=== PATIENT | male | born 1990 | race Caucasian/White ===

== ENCOUNTER 2019-06-22 16:54 | Inpatient (IN) | payer OTHER ==
[~2019-06-22] VITALS: Ht 175.3 cm; Wt 88.5 kg
--- NOTE | 2019-06-22 17:48 | NUR ---
RECEIVED PT TO ROOM 2137 VIA WHEELCHAIR, PT A/O X4, RESP EVEN AND NONLABABORED ON RA. ORIENTED PT TO ROOM AND CALL LIGHT, WILL ASSESS PT AND START PLAN OF CARE.
[2019-06-22] MEDS ORDERED: ADVIL200 MG PO (17:49)
[2019-06-22 18:09] VITALS: BP 116/57
[2019-06-22 18:43] VITALS: BMI 24.3
[2019-06-22 19:47] VITALS: BP 120/62
[2019-06-22 19:52] LABS: BASOPHILS 0.3 % (0-2); EOSINOPHILS 0 % (0-7); HEMATOCRIT 39.5 % (42.0-54.0); HEMOGLOBIN 13.4 g/dL (13.5-17.5); IMMATURE GRANULOCYTES 0.6 % (0-5); LYMPHOCYTES 19.4 % (15-50); MCH 32.1 pg (26.0-34.0); MCHC 33.9 g/dL (31.0-37.0); MCV 94.5 fL (80.0-100.0); MEAN PLATELET VOLUME 9.5 fL (7.4-10.4); MONOCYTES 12.2 % (2-11); NEUTROPHILS 67.5 % (40-80); PLATELET COUNT 151 10x3/uL (130-400); RBC 4.18 10x6/uL (4.20-6.10); RDW 11.9 % (11.5-14.5); WBC 3.6 10x3/uL (4.8-10.8)
[2019-06-22 20:21] LABS: ALBUMIN 3.3 g/dL (3.4-5.0); ALKALINE PHOSPHATASE 74 U/L (30-120); ALT (SGPT) 32 U/L (10-68); BILIRUBIN - TOTAL 0.41 mg/dL (0.2-1.3); C-REACTIVE PROTEIN 17.1 mg/dL (0.0-0.9); CALC OSMOLALITY 268 mosm/kg (275-300); CALCIUM 7.8 mg/dL (8.5-10.1); CARBON DIOXIDE 25.5 mmol/L (21.0-32.0); CHLORIDE - SERUM 100 mmol/L (98-107); FERRITIN 999 ng/mL (3-244); GLUCOSE 107 mg/dL (74-106); LDH 541 U/L (85-227); POTASSIUM - SERUM 3.5 mmol/L (3.5-5.1); SODIUM 134 mmol/L (136-145); UREA NITROGEN 14 mg/dL (7-18); eGFR NON AFRICAN AMERICAN > 90 mL/min (90-120)
[2019-06-22 20:53] LABS: ERYTHROCYTE SEDIMENTATION RATE 38 mm/hr (0-15)
--- NOTE | 2019-06-22 21:13 | NUR ---
PT IN BED, AAO X 3, RESP EVEN AND UNLABORED. NO DISTRESS NOTED. CL IN REACH, SR UP X 2.
[2019-06-22 23:00] VITALS: BP 106/56
--- NOTE | 2019-06-23 01:31 | NUR ---
PT TEMP AT 98.4 PER ORALTHEMOMETER
[2019-06-23 03:15] VITALS: BP 107/67
--- NOTE | 2019-06-23 03:35 | NUR ---
I have reviewed this patient and I concur with the Shift Assessment completed by the Licensed Practical Nurse today this shift.
[2019-06-23 05:29] LABS: BASOPHILS 0.3 % (0-2); EOSINOPHILS 0 % (0-7); HEMATOCRIT 37.2 % (42.0-54.0); HEMOGLOBIN 12.4 g/dL (13.5-17.5); IMMATURE GRANULOCYTES 0.5 % (0-5); LYMPHOCYTES 28.8 % (15-50); MCH 31.1 pg (26.0-34.0); MCHC 33.3 g/dL (31.0-37.0); MCV 93.2 fL (80.0-100.0); MEAN PLATELET VOLUME 9.1 fL (7.4-10.4); MONOCYTES 13.5 % (2-11); NEUTROPHILS 56.9 % (40-80); PLATELET COUNT 177 10x3/uL (130-400); RBC 3.99 10x6/uL (4.20-6.10); RDW 11.9 % (11.5-14.5); WBC 3.8 10x3/uL (4.8-10.8)
[2019-06-23 05:40] LABS: CALC OSMOLALITY 271 mosm/kg (275-300); CALCIUM 7.7 mg/dL (8.5-10.1); CARBON DIOXIDE 24.5 mmol/L (21.0-32.0); CHLORIDE - SERUM 103 mmol/L (98-107); CREATININE - SERUM 0.8 mg/dL (0.6-1.3); GLUCOSE 98 mg/dL (74-106); PHOSPHOROUS 3.1 mg/dL (2.5-4.9); POTASSIUM - SERUM 3.6 mmol/L (3.5-5.1); SODIUM 136 mmol/L (136-145); UREA NITROGEN 13 mg/dL (7-18); eGFR NON AFRICAN AMERICAN > 90 mL/min (90-120)
[2019-06-23 08:31] VITALS: BP 93/54
--- NOTE | 2019-06-23 09:35 | NUR ---
[facility]ED [facility] AND SPOKE WITH JENN, ASKED HER IF SHE COULD FAX PAPER STATING PT WAS TESTED FOR COVID 19.
[2019-06-23 09:39] LABS: BACTERIA FEW /hpf (NEGATIVE); BILIRUBIN NEGATIVE (NEGATIVE); EPITHELIAL CELLS OCC /hpf (0-5); GLUCOSE NEGATIVE (NEGATIVE); KETONE MODERATE mg/dL (NEGATIVE); NITRITE NEGATIVE (NEGATIVE); RED CELLS - URINE RARE /hpf (0-5); SPECIFIC GRAVITY 1.015 (1.005-1.020); WHITE CELLS - URINE 0-5 /hpf (NEGATIVE)
[2019-06-23 10:59] VITALS: BP 105/68
--- NOTE | 2019-06-23 12:50 | MORECARE ---
CASE MANAGEMENT DISCHARGE SUMMARY PATIENT: NORM SHORT UNIT: [id number] ADM DATE: 06/22/19 AGE: 28 : 90 SEX: M ROOM/BED: D.2137 AUTHOR: JEWEL MOSS PHYSICIAN: REFERRING PHYSICIAN: FELICITAS HANCOCK DO DATE OF SERVICE: 06/23/19 Discharge Plan Patient Name: NORM SHORT Facility: [facility]:[place] : 1990 Planned Disposition: Home Anticipated Discharge Date: 06/23/19 Discharge Date: Expected LOS: 1 Initial Reviewer: [email or web address] Initial Review Date: 06/22/2019 Generated: 06/23/19 1:49 pm DCPIA - Discharge Planning Initial Assessment Updated by [email or web address]: Blaed Pan on 06/23/19 12:46 pm * Is the patient Alert and Oriented? Yes * How many steps to enter\exit or inside your home? NONE * PCP DR. HANCOCK * Pharmacy [facility] IN [place] * Preadmission Environment Home with Family * ADLs Independent * Equipment None * Other Equipment NO MEDICAL EQUIPMENT PROVIDER PREFERENCE * List name and contact numbers for known caregivers / representatives who currently or will assist patient after discharge: JUHI SHORT, SPOUSE, * Verbal permission to speak to the caregivers and representatives has been obtained from the patient. N/A * Community resources currently utilized None * Please name any agencies selected above. NONE * Additional services required to return to the preadmission environment? No * Can the patient safely return to the preadmission environment? Yes * Has this patient been hospitalized within the prior 30 days at any hospital? No Patient Name: NORM SHORT Page 22384 at 1250 All edits/amendments must be made on the electronic document DICTATION DATE: 06/23/19 1249 SENIOR DATABASE PROGRAMMER: JESUS 06/23/19 1249 RPT#: [id number] DC DATE: STATUS: ADM IN [facility] [address] [place] [address] END OF REPORT
--- NOTE | 2019-06-23 12:57 | MORECARE ---
CASE MANAGEMENT DISCHARGE SUMMARY PATIENT: NORM SHORT UNIT: [id number] ADM DATE: 06/22/19 AGE: 28 : 90 SEX: M ROOM/BED: D.6411 AUTHOR: AJAY,DOC PHYSICIAN: REFERRING PHYSICIAN: FELICITAS HANCOCK DO DATE OF SERVICE: 06/23/19 Discharge Plan Patient Name: NORM SHORT Facility: [facility]:[place] : 1990 Planned Disposition: Home Anticipated Discharge Date: 06/23/19 Discharge Date: Expected LOS: 1 Initial Reviewer: [email or web address] Initial Review Date: 06/22/2019 Generated: 06/23/19 1:56 pm Comments DCP- Discharge Planning Updated by [email or web address]: Blade Pan on 06/23/19 11:[address] Patient Name: NORM SHORT Admission Status: Elective Accout number: [id number] Admission Date: 06-22-2019 : 1990 Admission Diagnosis: Attending: FELICITAS HANCOCK Current LOS: 1 Anticipated DC Date: 06-23-2019 Planned Disposition: Home Primary Insurance: [facility] Discharge Planning Comments: CM CALLED AND SPOKE TO PT VIA ROOM PHONE DUE TO INFECTION CONTROL PROTOCOL, TO DISCUSS DISCHARGE PLANNING AND NEEDS. PT REPORTS LIVING AT HOME INDEPENDENTLY WITH HIS SPOUSE. PT HAS NO MEDICAL EQUIPMENT AND NO OUTSIDE SERVICES ASSISTING IN THE HOME. CM DISCUSSED AVAILABILITY OF HOME HEALTH, REHAB SERVICES AND MEDICAL EQUIPMENT. PT DENIES DISCHARGE NEEDS, REPORTS HIS FAMILY WILL PICK HIM UP FOR DISCHARGE HOME. PT PLANS TO DISCHARGE HOME WITH FAMILY, PT HAS NO ANTICIPATED DISCHARGE NEEDS AT THIS TIME. FAMILY TO TRANSPORT PT HOME AT DISCHARGE. CM TO FOLLOW AND ASSIST IF NEEDED. Smash Fixer: Blade Pan DCPIA - Discharge Planning Initial Assessment Updated by [id number]: Blade Pan on 06/23/19 12:46 pm * Is the patient Alert and Oriented? Yes * How many steps to enter\exit or inside your home? NONE * PCP DR. HANCOCK * Pharmacy [facility] IN [place] * Preadmission Environment Home with Family * ADLs Independent * Equipment None * Other Equipment NO MEDICAL EQUIPMENT PROVIDER PREFERENCE * List name and contact numbers for known caregivers / representatives who currently or will assist patient after discharge: JUHI SHORT SPOUSE, * Verbal permission to speak to the caregivers and representatives has been obtained from the patient. N/A * Community resources currently utilized None * Please name any agencies selected above. NONE * Additional services required to return to the preadmission environment? No * Can the patient safely return to the preadmission environment? Yes * Has this patient been hospitalized within the prior 30 days at any hospital? No Last DP export: 06/23/19 11:50 a Patient Name: NORM SHORT Page 66654 at 1257 All edits/amendments must be made on the electronic document DICTATION DATE: 06/23/191255 NEWSPAPER STUFFER: JESUS 06/23/191255 RPT#: [id number] DC DATE: STATUS: ADM IN [facility] [address] [place] [address] END OF REPORT
[2019-06-23 13:06] VITALS: Ht 175.3 cm; Wt 88.5 kg
--- NOTE | 2019-06-23 13:10 | NUR ---
650MG OF TYLENOL GIVEN FOR FEVER ALSO GAVE 4MG OF ZOFRAN FOR NAUSEA. PT DENIES ANY OTHER NEEDS AT THIS TIME. CALL LIGHT IN REACH, NAD NOTED, WILL CONTINUE TO MONITOR.
[2019-06-23 17:22] VITALS: BP 106/62
--- NOTE | 2019-06-23 19:00 | NUR ---
REPORT RECEIVED, WILL CONTINUE POC. PATIENT IS AAOX4, LYING IN SEMI-FOWLERS POSITION. NO S/S OF DISTRESS OBSERVED, RR EVEN AND UNLABORED ON 2L O2 VIA NC. PIV TO RT FA INFUSING NS @ 30ML/HR. PATIENT DENIES NEEDS AT THIS TIME. CL IN REACH, BED LOCKED AND LOWERED. WILL CTM.
--- NOTE | 2019-06-23 20:20 | NUR ---
ADMINISTERED HS MEDS AND GAVE ICE WATER, JELLO AND APPLESAUCE. PATIENT AT 0% OF DINNER. APPLIED TELEMETRY. VSS. PATIENT DENIES FURTHER NEEDS AT THIS TIME.
[2019-06-23 20:38] VITALS: BP 112/67
[2019-06-24 05:12] VITALS: BP 102/53
--- NOTE | 2019-06-24 05:28 | NUR ---
I have reviewed this patient and I concur with the Shift Assessment completed by the Licensed Practical Nurse today this shift.
--- NOTE | 2019-06-24 05:41 | NUR ---
PATIENT IV INFILTRATED. IV REMOVED WITH CATH TIP INTACT, GAUZE AND TAPE APPLIED. ICE WATER GIVEN. PATIENT DENIES FURTHER NEEDS AT THIS TIME. DROPLET PRECAUTIONS MAINTAINED.
[2019-06-24 07:08] LABS: BASOPHILS 0.2 % (0-2); EOSINOPHILS 0.4 % (0-7); HEMATOCRIT 38.5 % (42.0-54.0); IMMATURE GRANULOCYTES 0.4 % (0-5); LYMPHOCYTES 20.8 % (15-50); MCH 31.7 pg (26.0-34.0); MCHC 33.8 g/dL (31.0-37.0); MCV 93.9 fL (80.0-100.0); MEAN PLATELET VOLUME 9.1 fL (7.4-10.4); MONOCYTES 11.5 % (2-11); NEUTROPHILS 66.7 % (40-80); RDW 11.8 % (11.5-14.5)
[2019-06-24 07:11] LABS: PLATELET COUNT 220 10x3/uL (130-400)
[2019-06-24 07:41] LABS: CALC OSMOLALITY 272 mosm/kg (275-300); CALCIUM 8.1 mg/dL (8.5-10.1); CARBON DIOXIDE 24.5 mmol/L (21.0-32.0); CHLORIDE - SERUM 102 mmol/L (98-107); CREATININE - SERUM 0.8 mg/dL (0.6-1.3); GLUCOSE 97 mg/dL (74-106); MAGNESIUM - SERUM 2.2 mg/dL (1.8-2.4); POTASSIUM - SERUM 3.8 mmol/L (3.5-5.1); SODIUM 137 mmol/L (136-145); UREA NITROGEN 10 mg/dL (7-18); eGFR NON AFRICAN AMERICAN > 90 mL/min (90-120)
[2019-06-24 08:44] VITALS: BP 103/59
--- NOTE | 2019-06-24 09:06 | NUR ---
LEFT FA 20G IV INSERTED ON FIRST ATTEMPT.
--- NOTE | 2019-06-24 10:21 | NUR ---
PATIENTS MOTHER TIFFANIE WANTING UPDAT. THIS NURSE WAS IN ROOM SHE LEFT HER NUMBER WITH SPINNING LATHE OPERATOR HYDRAULIC. THIS NURSE CALLED THAT NUMBER TWICE AND RECEIVED NO ANSWER.
--- NOTE | 2019-06-24 10:42 | NUR ---
I have reviewed this patient and I concur with the Shift Assessment completed by the Licensed Practical Nurse today this shift.
--- NOTE | 2019-06-24 20:00 | NUR ---
PT SITTING UP IN BED. NO SIGNS OF DISTRESS. PT DENIES ANY PAIN OR NEEDS AT THIS TIME. CL IN REACH, BED IN LOWEST POSITION. O2 VIA NC AT 3L. RIGHT FOREARM IV INFUSING AT 30ML/HR.
[2019-06-24 21:00] VITALS: BP 110/62
[2019-06-25 05:23] VITALS: BP 103/58
[2019-06-25 06:22] LABS: BASOPHILS 0.5 % (0-2); EOSINOPHILS 0.7 % (0-7); HEMATOCRIT 39.2 % (42.0-54.0); IMMATURE GRANULOCYTES 0.5 % (0-5); LYMPHOCYTES 27.5 % (15-50); MCH 31.3 pg (26.0-34.0); MCHC 33.2 g/dL (31.0-37.0); MCV 94.2 fL (80.0-100.0); MEAN PLATELET VOLUME 9.3 fL (7.4-10.4); MONOCYTES 13.3 % (2-11); NEUTROPHILS 57.5 % (40-80); PLATELET COUNT 256 10x3/uL (130-400); RBC 4.16 10x6/uL (4.20-6.10); RDW 11.9 % (11.5-14.5); WBC 4.4 10x3/uL (4.8-10.8)
[2019-06-25 06:45] LABS: CALC OSMOLALITY 278 mosm/kg (275-300); CALCIUM 8.3 mg/dL (8.5-10.1); CARBON DIOXIDE 25.1 mmol/L (21.0-32.0); CHLORIDE - SERUM 104 mmol/L (98-107); CREATININE - SERUM 0.8 mg/dL (0.6-1.3); GLUCOSE 91 mg/dL (74-106); MAGNESIUM - SERUM 2.3 mg/dL (1.8-2.4); PHOSPHOROUS 4.2 mg/dL (2.5-4.9); POTASSIUM - SERUM 3.9 mmol/L (3.5-5.1); SODIUM 140 mmol/L (136-145); UREA NITROGEN 12 mg/dL (7-18); eGFR NON AFRICAN AMERICAN > 90 mL/min (90-120)
--- NOTE | 2019-06-25 08:00 | NUR ---
PT RECEIVED AWAKE AND ALERT, LYING IN BED. STILL WITH DRY COUGH, NOT VERY PRODUCTIVE. PULSE OX 95% ON 3 LITERS.
[2019-06-25 08:03] VITALS: BP 107/57
--- NOTE | 2019-06-25 08:35 | MORECARE ---
CASE MANAGEMENT DISCHARGE SUMMARY PATIENT: NORM SHORT UNIT: [id number] ADM DATE: 06/22/19 AGE: 28 : 90 SEX: M ROOM/BED: D.2131 AUTHOR: AJAY,DOC PHYSICIAN: REFERRING PHYSICIAN: FELICITAS HANCOCK DO DATE OF SERVICE: 06/25/19 Discharge Plan Patient Name: NORM SHORT Facility: [facility]:[place] : 1990 Planned Disposition: Home Anticipated Discharge Date: 06/23/19 Discharge Date: Expected LOS: 1 Initial Reviewer: [email or web address] Initial Review Date: 06/22/2019 Generated: 06/25/19 9:35 am Comments DCP- Discharge Planning Updated by [email or web address]: Blade Pan on 06/23/19 11:[address] Patient Name: NORM SHORT Admission Status: Elective Accout number: [id number] Admission Date: 06-22-2019 : 1990 Admission Diagnosis: Attending: FELICITAS HANCOCK Current LOS: 1 Anticipated DC Date: 06-23-2019 Planned Disposition: Home Primary Insurance: [facility] Discharge Planning Comments: CM CALLED AND SPOKE TO PT VIA ROOM PHONE DUE TO INFECTION CONTROL PROTOCOL, TO DISCUSS DISCHARGE PLANNING AND NEEDS. PT REPORTS LIVING AT HOME INDEPENDENTLY WITH HIS SPOUSE. PT HAS NO MEDICAL EQUIPMENT AND NO OUTSIDE SERVICES ASSISTING IN THE HOME. CM DISCUSSED AVAILABILITY OF HOME HEALTH, REHAB SERVICES AND MEDICAL EQUIPMENT. PT DENIES DISCHARGE NEEDS, REPORTS HIS FAMILY WILL PICK HIM UP FOR DISCHARGE HOME. PT PLANS TO DISCHARGE HOME WITH FAMILY, PT HAS NO ANTICIPATED DISCHARGE NEEDS AT THIS TIME. FAMILY TO TRANSPORT PT HOME AT DISCHARGE. CM TO FOLLOW AND ASSIST IF NEEDED. Tour Agent: Blade Pan DCPIA - Discharge Planning Initial Assessment Updated by [email or web address]: Blade Pan on 06/23/19 12:46 pm * Is the patient Alert and Oriented? Yes * How many steps to enter\exit or inside your home? NONE * PCP DR. HANCOCK * Pharmacy [facility] IN [place] * Preadmission Environment Home with Family * ADLs Independent * Equipment None * Other Equipment NO MEDICAL EQUIPMENT PROVIDER PREFERENCE * List name and contact numbers for known caregivers / representatives who currently or will assist patient after discharge: JUHI SHORT SPOUSE, * Verbal permission to speak to the caregivers and representatives has been obtained from the patient. N/A * Community resources currently utilized None * Please name any agencies selected above. NONE * Additional services required to return to the preadmission environment? No * Can the patient safely return to the preadmission environment? Yes * Has this patient been hospitalized within the prior 30 days at any hospital? No Last DP export: 06/23/19 11:57 a Patient Name: NORM SHORT Page [id number] at 0835 All edits/amendments must be made on the electronic document DICTATION DATE: 06/25/19834 SILVER MINER BLASTING: JESUS 06/25/19834 RPT#: [id number] DC DATE: STATUS: ADM IN [facility] [address] [place] [address] END OF REPORT
[2019-06-25 14:07] VITALS: BP 98/54
[2019-06-25 17:46] VITALS: BP 99/62
--- NOTE | 2019-06-25 19:19 | NUR ---
MADE CONTACT BUY PHONE PT WAS ALERT AND OX4 AND DENIES NEEDS AT THIS TIME I WILL LIMIT ACCESS TO ROOM MUCH POSSIBLE AND WILL OBSERVE DROPLET ISOLATION
--- NOTE | 2019-06-25 21:12 | NUR ---
CONTACT WITH PT HAS BEEN MADE AND MEDS GIVEN BED LOW AND LOCKED VS AND NEEDS DONE
[2019-06-25 21:25] VITALS: BP 101/71
[2019-06-26 00:23] VITALS: BP 106/68
--- NOTE | 2019-06-26 04:01 | NUR ---
I have reviewed this patient and I concur with the Shift Assessment completed by the Licensed Practical Nurse today this shift.
[2019-06-26 05:29] LABS: BASOPHILS 0.2 % (0-2); EOSINOPHILS 1.5 % (0-7); HEMATOCRIT 38.4 % (42.0-54.0); HEMOGLOBIN 12.7 g/dL (13.5-17.5); IMMATURE GRANULOCYTES 0.7 % (0-5); LYMPHOCYTES 22.3 % (15-50); MCH 31.3 pg (26.0-34.0); MCHC 33.1 g/dL (31.0-37.0); MCV 94.6 fL (80.0-100.0); MEAN PLATELET VOLUME 9.3 fL (7.4-10.4); MONOCYTES 13.7 % (2-11); NEUTROPHILS 61.6 % (40-80); RBC 4.06 10x6/uL (4.20-6.10); RDW 11.8 % (11.5-14.5)
[2019-06-26 05:34] LABS: C-REACTIVE PROTEIN 6.8 mg/dL (0.0-0.9); CALC OSMOLALITY 271 mosm/kg (275-300); CALCIUM 8.4 mg/dL (8.5-10.1); CARBON DIOXIDE 26.1 mmol/L (21.0-32.0); CHLORIDE - SERUM 102 mmol/L (98-107); CREATININE - SERUM 0.9 mg/dL (0.6-1.3); GLUCOSE 90 mg/dL (74-106); MAGNESIUM - SERUM 2.2 mg/dL (1.8-2.4); PHOSPHOROUS 4.1 mg/dL (2.5-4.9); POTASSIUM - SERUM 3.9 mmol/L (3.5-5.1); SODIUM 136 mmol/L (136-145); UREA NITROGEN 12 mg/dL (7-18); eGFR NON AFRICAN AMERICAN > 90 mL/min (90-120)
[2019-06-26 05:39] LABS: PLATELET COUNT 330 10x3/uL (130-400); WBC 6.1 10x3/uL (4.8-10.8)
--- NOTE | 2019-06-26 07:20 | NUR ---
PT RECEIVED ASLEEP IN BED. NO APPARENT DISTRESS, RESTING QUIETLY.
[2019-06-26 08:08] VITALS: BP 108/62
--- NOTE | 2019-06-26 14:00 | NUR ---
Nutrition Follow-up: On droplet isolation; covid-19+. Nursing reports pt not eating well. Diarrhea improving. Denies N/V. Diet: Regular No new wt; last wt: 195# (06/22) Labs noted: Ca 8.4 Meds noted: Questran, Protonix -Encourage PO intake and honor food preferences. -Offer nutrition supplements. -RD following.
[2019-06-26 15:13] VITALS: BP 101/59
[2019-06-26 20:15] VITALS: BP 107/67
--- NOTE | 2019-06-26 21:24 | NUR ---
RECEIVED UP IN BED WITH EYES OPEN AND TV ON. ALERT AND ORIENTED X4. UP AD IVETTE. OFF GOING REPORTED PT REFUSED HIS LOVENOX EARLIER. EDUCATED HIM ON WHY HE WAS RECEIVING IT AND POSSIBLE EFFECTS OF NOT TAKING IT. PT AGREED TO TAKE IT. O2@ 3 LITERS PER NC. IV TO LT FA SL. TELEMETRY IN PLACE. DENIES ANY NEEDS.
[2019-06-27 03:58] VITALS: BP 112/68
[2019-06-27 04:58] LABS: BASOPHILS 0.3 % (0-2); EOSINOPHILS 1.7 % (0-7); HEMATOCRIT 39.7 % (42.0-54.0); HEMOGLOBIN 13.3 g/dL (13.5-17.5); IMMATURE GRANULOCYTES 0.7 % (0-5); LYMPHOCYTES 19.1 % (15-50); MCH 31.7 pg (26.0-34.0); MCHC 33.5 g/dL (31.0-37.0); MCV 94.5 fL (80.0-100.0); MONOCYTES 13.6 % (2-11); NEUTROPHILS 64.6 % (40-80); PLATELET COUNT 352 10x3/uL (130-400); RDW 11.7 % (11.5-14.5); WBC 5.8 10x3/uL (4.8-10.8)
[2019-06-27 05:11] LABS: CALC OSMOLALITY 240 mosm/kg (275-300); CALCIUM 8.4 mg/dL (8.5-10.1); CARBON DIOXIDE 29.3 mmol/L (21.0-32.0); CHLORIDE - SERUM 96 mmol/L (98-107); GLUCOSE 94 mg/dL (74-106); MAGNESIUM - SERUM 2.3 mg/dL (1.8-2.4); PHOSPHOROUS 4.4 mg/dL (2.5-4.9); POTASSIUM - SERUM 3.4 mmol/L (3.5-5.1); UREA NITROGEN 11 mg/dL (7-18); eGFR NON AFRICAN AMERICAN > 90 mL/min (90-120)
[2019-06-27 05:13] LABS: SODIUM 120 mmol/L (136-145)
[2019-06-27 05:48] VITALS: BP 101/60
--- NOTE | 2019-06-27 08:52 | NUR ---
PT LAYING SUPINE, DENIES NEEDS OR PAIN AT THIS TIME. CALL LIGHT WITHIN REACH. BED IN LOWEST POSITION. WILL CONTINUE TO MONITOR.
[2019-06-27 09:21] VITALS: BP 104/69
--- NOTE | 2019-06-27 12:15 | NUR ---
PATIENTS MOTHER CALLED AND REQUESTED CALL BACK. MOTHERS NUMBER IS [phone], DANETTE SHORT. NURSE TO RETURN CALL.
[2019-06-27 12:19] LABS: CALC OSMOLALITY 272 mosm/kg (275-300); CALCIUM 8.8 mg/dL (8.5-10.1); CARBON DIOXIDE 24.7 mmol/L (21.0-32.0); CHLORIDE - SERUM 101 mmol/L (98-107); CREATININE - SERUM 1.1 mg/dL (0.6-1.3); GLUCOSE 86 mg/dL (74-106); POTASSIUM - SERUM 4.4 mmol/L (3.5-5.1); SODIUM 137 mmol/L (136-145); UREA NITROGEN 13 mg/dL (7-18); eGFR NON AFRICAN AMERICAN 85 mL/min (90-120)
--- NOTE | 2019-06-27 12:42 | NUR ---
PT'S MOTHER CALLED. WAS NOT ABLE TO SPEAK WITH HER AT THE TIME DUE TO BEING IN ISOLATION ROOMS. STATED SHE WOULD CALL BACK AT A LATER TIME. PT DENIES NEEDS OR PAIN AT THIS TIME. LUNCH TRAY RECIEVED. WILL CONTINUE TO MONITOR.
[2019-06-27 18:31] VITALS: BP 111/57
[2019-06-27 20:17] VITALS: BP 99/59
--- NOTE | 2019-06-27 20:33 | NUR ---
RECEIVED UP IN BED WITH EYES OPEN AN DTV ON. ALERT AND ORIENTED X4. UP AD IVETTE. O2@ 1.5 LITERS PER N/C IN PLACE. IV TO LT FA SL. REQUESTING A SHOWER. WILL COLLECT SUPPLIES AND GIVE HIM A SHOWER. DENIES ANY OTHER NEEDS AT THIS TIME.
[2019-06-27 23:36] VITALS: BP 105/68
[2019-06-28 05:55] VITALS: BP 105/62
--- NOTE | 2019-06-28 07:00 | NUR ---
RECEIVED REPORT. ASSUMED CARE OF PATIENT. PATIENT REMAINS IN ISOLATION FOR COVID-19. PATIENT IS SR ON TELEMETRY WITH RATE OF 61. PER AM REPORT, PATIENT TO D/C TO HOME TODAY. NO D/C ORDERS AT THIS TIME.
[2019-06-28 08:26] VITALS: BP 111/67
--- NOTE | 2019-06-28 09:46 | NUR ---
O2 VIA NC AT 1L, SATURATION 97-99%. REMOVED OXYGEN FROM PATIENT FOR 5 MINUTES WHILE AT BEDSIDE. ROOM AIR SATURATION 98%
--- NOTE | 2019-06-28 11:04 | NUR ---
UPON REVIEWING PROGRESS NOTES, THIS DEICER REPAIRER ELECTRIC HAS NOT HAD A LENGTHY CONVERSATION REGARDING PATIENT.
--- NOTE | 2019-06-28 11:44 | MORECARE ---
CASE MANAGEMENT DISCHARGE SUMMARY PATIENT: NORM SHOTR UNIT: [id number] ADM DATE: 06/22/19 AGE: 28 : [birth year] SEX: M ROOM/BED: D.2131 AUTHOR: AJAY,DOC PHYSICIAN: REFERRING PHYSICIAN: FELICITAS HANCOCK DO DATE OF SERVICE: 06/28/19 Discharge Plan Patient Name: NORM SHORT Facility: [facility]:[place] : 1990 Planned Disposition: Home Anticipated Discharge Date: 06/23/19 Discharge Date: Expected LOS: 1 Initial Reviewer: [email or web address] Initial Review Date: 06/22/2019 Generated: 06/28/19 12:43 pm Comments DCP- Discharge Planning Updated by [email or web address]: Vira Davis on 06/28/19 10:[address] CM spoke with patient's nurse regarding walk test for potential home 02. Nursing is stating that he is currently on RA and at 95%. CM asked if the next time she is in room have him walk around in room and check 02 sat since patient is in isolation. Nursing agreed to try since he is in such close courters it will a little difficult. She states that the patient isn't complaining of feeling SOB anymore. CM will continue to follow and assist as needed with discharge planning / needs. DCP- Discharge Planning Updated by [email or web address]: Blade Pan on 06/23/19 11:[address] Patient Name: NORM SHORT Admission Status: Elective Accout number: [id number] Admission Date: 06-22-2019 : 1990 Admission Diagnosis: Attending: FELICITAS HANCOKC Current LOS: 1 Anticipated DC Date: 06-23-2019 Planned Disposition: Home Primary Insurance: [facility] Discharge Planning Comments: CM CALLED AND SPOKE TO PT VIA ROOM PHONE DUE TO INFECTION CONTROL PROTOCOL, TO DISCUSS DISCHARGE PLANNING AND NEEDS. PT REPORTS LIVING AT HOME INDEPENDENTLY WITH HIS SPOUSE. PT HAS NO MEDICAL EQUIPMENT AND NO OUTSIDE SERVICES ASSISTING IN THE HOME. CM DISCUSSED AVAILABILITY OF HOME HEALTH, REHAB SERVICES AND MEDICAL EQUIPMENT. PT DENIES DISCHARGE NEEDS, REPORTS HIS FAMILY WILL PICK HIM UP FOR DISCHARGE HOME. PT PLANS TO DISCHARGE HOME WITH FAMILY, PT HAS NO ANTICIPATED DISCHARGE NEEDS AT THIS TIME. FAMILY TO TRANSPORT PT HOME AT DISCHARGE. CM TO FOLLOW AND ASSIST IF NEEDED. Travel Coordinator: Blade Pan DCPIA - Discharge Planning Initial Assessment Updated by [email or web address]: Blade Pan on 06/23/19 12:46 pm * Is the patient Alert and Oriented? Yes * How many steps to enter\exit or inside your home? NONE * PCP DR. HANCOCK * Pharmacy [facility] IN [place] * Preadmission Environment Home with Family * ADLs Independent * Equipment None * Other Equipment NO MEDICAL EQUIPMENT PROVIDER PREFERENCE * List name and contact numbers for known caregivers / representatives who currently or will assist patient after discharge: JUHI SHORT, SPOUSE, * Verbal permission to speak to the caregivers and representatives has been obtained from the patient. N/A * Community resources currently utilized None * Please name any agencies selected above. NONE * Additional services required to return to the preadmission environment? No * Can the patient safely return to the preadmission environment? Yes * Has this patient been hospitalized within the prior 30 days at any hospital? No Last DP export: 06/25/19 7:35 am Patient Name: NORM SHORT Page 78777 at 1144 All edits/amendments must be made on the electronic document DICTATION DATE: 06/28/191142 INTERNATIONAL EDITORIAL PRODUCER: JESUS 06/28/191142 RPT#: [id number] DC DATE: STATUS: ADM IN [facility] [address] [place] [address] END OF REPORT
--- NOTE | 2019-06-28 12:13 | NUR ---
LABS COLLECTED AT THIS TIME.
--- NOTE | 2019-06-28 12:16 | NUR ---
PT AMBULATING IN ROOM ON ROOM AIR, OXYGEN SATURATION 98-99% PATIENT AMBULATED APPROXIMATELY 75-100 FT IN ROOM.
[2019-06-28 12:35] VITALS: BP 122/69
[2019-06-28 12:40] LABS: BASOPHILS 0.5 % (0-2); EOSINOPHILS 2.3 % (0-7); HEMATOCRIT 41.7 % (42.0-54.0); HEMOGLOBIN 14.2 g/dL (13.5-17.5); IMMATURE GRANULOCYTES 1.6 % (0-5); LYMPHOCYTES 20.7 % (15-50); MCH 31.8 pg (26.0-34.0); MCHC 34.1 g/dL (31.0-37.0); MCV 93.3 fL (80.0-100.0); MEAN PLATELET VOLUME 9.5 fL (7.4-10.4); MONOCYTES 13.9 % (2-11); PLATELET COUNT 391 10x3/uL (130-400); RBC 4.47 10x6/uL (4.20-6.10); RDW 11.6 % (11.5-14.5); WBC 4.4 10x3/uL (4.8-10.8)
[2019-06-28 12:52] LABS: CALC OSMOLALITY 271 mosm/kg (275-300); CALCIUM 8.6 mg/dL (8.5-10.1); CARBON DIOXIDE 23.6 mmol/L (21.0-32.0); CHLORIDE - SERUM 104 mmol/L (98-107); GLUCOSE 89 mg/dL (74-106); POTASSIUM - SERUM 4.6 mmol/L (3.5-5.1); SODIUM 137 mmol/L (136-145); UREA NITROGEN 11 mg/dL (7-18)
[2019-06-28 12:53] LABS: CREATININE - SERUM 0.7 mg/dL (0.6-1.3); eGFR NON AFRICAN AMERICAN > 90 mL/min (90-120)
[2019-06-28] MEDS ORDERED: ZITHROMAX250 MG PO (14:27)
--- NOTE | 2019-06-28 14:52 | NUR ---
PER NURSING MESSAGE, ROCEPHIN ADMINISTERED AT THIS TIME IN ORDER FOR PATIENT TO DISCHARGE TO HOME. NO DISTRESS.
--- NOTE | 2019-06-28 15:50 | NUR ---
TELEMETRY REMOVED AND RETURNED TO DRY CAN TENDER. 20 GAUGE IV REMOVED FROM LEFT WRIST. CATHETER TIP INTACT. NO BLEEDING FROM SITE. 2X2 GAUZE APPLIED AND SECURED WITH BANDAID. TOLERATED IV REMOVAL WELL PATIENT IS DISCHARGING TO HOME.
--- NOTE | 2019-06-28 16:00 | NUR ---
DISCHARGE INSTRUCTIONS PROVIDED TO PATIENT. PATIENT VERBALIZED UNDERSTANDING OF ALL INSTRUCTIONS PROVIDED.
--- NOTE | 2019-06-28 16:16 | NUR ---
PATIENT LEFT UNIT VIA WHEELCHAIR AT THIS TIME WITH ALL PERSONAL BELONGINGS. PATIENT DROVE SELF HOME. PATIENT LEFT UNIT IN STABLE CONDITION AND DISCHARGED TO HOME.
--- NOTE | 2019-06-29 08:48 | MORECARE ---
CASE MANAGEMENT DISCHARGE SUMMARY PATIENT: NORM SHORT UNIT: [id number] ADM DATE: 06/22/19 AGE: 28 : 90 SEX: M ROOM/BED: D.2131 AUTHOR: AJAY,DOC PHYSICIAN: REFERRING PHYSICIAN: FELICITAS HANCOCK DO DATE OF SERVICE: 06/29/19 Discharge Plan Patient Name: NORM SHORT Facility: [facility]:[place] : 1990 Planned Disposition: Home Anticipated Discharge Date: 06/28/19 Discharge Date: 06/28/2019 Expected LOS: 6 Initial Reviewer: [email or web address] Initial Review Date: 06/22/2019 Generated: 06/29/19 9:48 am Comments DCP- Discharge Planning Updated by [email or web address]: Vira Davis on 06/28/19 10:[address] CM spoke with patient's nurse regarding walk test for potential home 02. Nursing is stating that he is currently on RA and at 95%. CM asked if the next time she is in room have him walk around in room and check 02 sat since patient is in isolation. Nursing agreed to try since he is in such close courters it will a little difficult. She states that the patient isn't complaining of feeling SOB anymore. CM will continue to follow and assist as needed with discharge planning / needs. DCP- Discharge Planning Updated by [email or web address]: Blade Pan on 06/23/19 11:[address] Patient Name: NORM SHORT Admission Status: Elective Accout number: [id number] Admission Date: 06-22-2019 : 1990 Admission Diagnosis: Attending: FELICITAS HANCOCK Current LOS: 1 Anticipated DC Date: 06-23-2019 Planned Disposition: Home Primary Insurance: [facility] Discharge Planning Comments: CM CALLED AND SPOKE TO PT VIA ROOM PHONE DUE TO INFECTION CONTROL PROTOCOL, TO DISCUSS DISCHARGE PLANNING AND NEEDS. PT REPORTS LIVING AT HOME INDEPENDENTLY WITH HIS SPOUSE. PT HAS NO MEDICAL EQUIPMENT AND NO OUTSIDE SERVICES ASSISTING IN THE HOME. CM DISCUSSED AVAILABILITY OF HOME HEALTH, REHAB SERVICES AND MEDICAL EQUIPMENT. PT DENIES DISCHARGE NEEDS, REPORTS HIS FAMILY WILL PICK HIM UP FOR DISCHARGE HOME. PT PLANS TO DISCHARGE HOME WITH FAMILY, PT HAS NO ANTICIPATED DISCHARGE NEEDS AT THIS TIME. FAMILY TO TRANSPORT PT HOME AT DISCHARGE. CM TO FOLLOW AND ASSIST IF NEEDED. Database Tester: Blade Pan DCPIA - Discharge Planning Initial Assessment Updated by [email or web address]: Blade Pan on 06/23/19 12:46 pm * Is the patient Alert and Oriented? Yes * How many steps to enter\exit or inside your home? NONE * PCP DR. HANCOCK * Pharmacy [facility] IN [place] * Preadmission Environment Home with Family * ADLs Independent * Equipment None * Other Equipment NO MEDICAL EQUIPMENT PROVIDER PREFERENCE * List name and contact numbers for known caregivers / representatives who currently or will assist patient after discharge: JUHI SHORT, SPOUSE, * Verbal permission to speak to the caregivers and representatives has been obtained from the patient. N/A * Community resources currently utilized None * Please name any agencies selected above. NONE * Additional services required to return to the preadmission environment? No * Can the patient safely return to the preadmission environment? Yes * Has this patient been hospitalized within the prior 30 days at any hospital? No Last DP export: 06/28/19 10:44 am Patient Name: NORM SHORT Page 37096 at 0848 All edits/amendments must be made on the electronic document DICTATION DATE: 06/29/19847 CARPENTER INSPECTOR: JESUS 06/29/19847 RPT#: [id number] DC DATE:06/28/19 STATUS: DIS IN [place] [id number] [place] [address] END OF REPORT
== END 2019-06-28 16:15 | disposition home or self-care (01) | DRG 871 ==
LOC: D.M2 16:54
PROVIDERS: Family Medicine; Internal Medicine Pulmonary Disease; ADMIT Family Medicine; ATTEND Family Medicine
DX: A41.9 Sepsis, unspecified organism (principal); J96.01 Acute respiratory failure with hypoxia; J18.9 Pneumonia, unspecified organism; D64.9 Anemia, unspecified; R19.7 Diarrhea, unspecified; B97.29 Other coronavirus as the cause of diseases classified elsewhere